=== PATIENT | female | born 1955 | race Caucasian/White ===

== ENCOUNTER → 2024-01-02 15:00 | Outpatient (REF) | payer MEDICARE, OTHER, SELFPAY | LOC: HWRAD 15:00 | PROVIDERS: ATTENDING PHYSICIAN Obstetrics & Gynecology Gynecology; FAMILY PHYSICIAN Family Medicine | DX: N85.9 Noninflammatory disorder of uterus, unspecified (principal) | CPT/HCPCS: 76830; 76856 ==

== ENCOUNTER → 2024-02-01 13:08 | Outpatient (REF) | payer MEDICARE, OTHER, SELFPAY | LOC: DHVS 13:08 | PROVIDERS: ATTENDING PHYSICIAN Surgery Vascular Surgery | DX: I65.23 Occlusion and stenosis of bilateral carotid arteries (principal) | CPT/HCPCS: 93880 ==

== ENCOUNTER → 2024-02-28 07:50 | Outpatient (REF) | payer MEDICARE, OTHER, SELFPAY | LOC: RAD 07:50 | PROVIDERS: ATTENDING PHYSICIAN Surgery Vascular Surgery; FAMILY PHYSICIAN Family Medicine | DX: I65.23 Occlusion and stenosis of bilateral carotid arteries (principal) | CPT/HCPCS: 70496; 70498; Q9967 ==

== ENCOUNTER 2024-05-27 06:19 | Inpatient (IN) | payer MEDICARE, OTHER, SELFPAY ==
[2024-05-23 09:32] VITALS: BMI 39.4
[2024-05-23 10:15] LABS: % Basophils 0.8 % (0-2); % Immature Granulocytes 0.2 % (0-0.5); % Lymphocytes 28.2 % (20.5-51.1); % Monocytes 7.7 % (1.7-9.3); % Neutrophils 61.1 % (42.2-75.2); Absolute Eosinophils 0.1 10^3/uL (0-0.7); Absolute Lymphocytes 1.4 10^3/uL (1.2-3.4); Absolute Monocytes 0.4 10^3/uL (0.1-0.6); Hematocrit 39.1 % (37.0-47.0); Hemoglobin 13.2 g/dL (12.0-16.0); Mean Corp Hgb Conc. 33.8 g/dL (33.0-37.0); Mean Corpuscular Hgb 30.1 pg (27.0-31.0); Mean Corpuscular Volume 89.1 fL (81.0-99.0); Mean Platelet Volume 8.7 fL (7.4-10.4); Nucleated Red Blood Cells % 0 %; Platelet Count 225 10^3/uL (130-400); Red Blood Cell Count 4.39 10^6/uL (4.20-5.40); Red Cell Dist. Width 13.2 % (11.5-14.5); White Blood Cell Count 4.9 10^3/uL (4.8-10.8)
[2024-05-23 10:25] LABS: Blood Urea Nitrogen 20 mg/dl (7-17); Calcium 9.7 mg/dl (8.4-10.2); Carbon Dioxide 23 mmol/L (22-30); Chloride 106 mmol/L (98-107); Estimated Creatinine Clearance 105 ml/min; Glucose 113 mg/dl (70-99); Potassium 4.4 mmol/L (3.5-5.1); Sodium 140 mmol/L (135-145); eGFR > 60.00
[2024-05-23 10:27] LABS: INR 0.99; PT 13.1 Sec (11.4-14.6)
[2024-05-23 10:28] LABS: APTT 23.4 Sec (23.4-35.0)
[2024-05-27] VITALS (12 sets, daily range): BP systolic 93–138; BP diastolic 42–92
[2024-05-27] MEDS: BACTROBAN NASAL 1 GRAM NASAL (06:57)
[2024-05-27] MEDS: NSS 500 IV (06:57)
[2024-05-27] MEDS: PERIDEX 0.12% ORAL RINSE 15 ML PO (06:57)
[2024-05-27] MEDS: VANCOCIN 300 MG IV (07:01)
[2024-05-27] MEDS: VANCOCIN 300 ML IV (07:01)
[2024-05-27 07:10] LABS: Glucose - Point of Care 98 mg/dl (70-99)
--- NOTE | 2024-05-27 07:40 | W.SUR.PREOP ---
Pre-Operative Surgical Note
-
I have examined this patient prior to the performance of the scheduled procedure.
The patient's condition is unchanged from the time of the current History and
Physical and the patient is able to undergo the scheduled procedure.
--- NOTE | 2024-05-27 09:44 | W.SUR.POST ---
Surgical Immediate Post Op
Note
Pre Op Diagnosis: Asymptomatic RIGHT carotid stenosis
Post Op Diagnosis: Asymptomatic RIGHT carotid stenosis
Procedure Performed: right carotid endarterectomy with bovine pericardium patch and EEG monitoring
Primary Surgeon: Song Anand MD
Phone Representative: Jacquelyn Lucas INFORMATION BROKER-C
Anesthesia: GETA
Estimated Blood Loss: 15 ml
Fluids: See anesthesia flow sheet
Drains/Shunts: N/A
Specimens/Cultures: Right carotid plaque
Doppler/Duplex/Angio (Y/N): Y
Complications: None
Operative Findings: Successful removal of carotid plaque upon awakening from anesthesia moved BL UE and LE to command and spontaneous
--- NOTE | 2024-05-27 09:46 | OR.RPT ---
Operative Report
Operative Report
PROCEDURE DATE: 05/27/2024
Preoperative diagnosis: Critical asymptomatic right carotid artery stenosis.
Postoperative diagnosis: Same
Procedure: Right carotid endarterectomy with bovine pericardial patch angioplasty and intraoperative EEG/SSEP monitoring.
Surgeon: Cheng
Respite Coordinator: MIGUEL ÁNGEL Lucas, required for all aspects of procedure including assistance with traction/countertraction, following of suture line, assistance with closure.
Complications: None
Anesthesia: General
Indications for procedure:
Critical right carotid stenosis. Asymptomatic. Risk/benefits/alternatives of revascularization all fully discussed. Patient understood all wish to proceed.
Description of procedure:
Patient was identified brought to the operating room placed on the table in supine position. After the adequate administration of anesthesia and perioperative antibiotics she was prepped and draped in the standard surgical fashion. A standard
preoperative timeout was undertaken and everybody was in agreement the plan. A standard longitudinal incision was made in the right neck that was carried through the skin subcutaneous tissue. Using the electrocautery dissection was carried through
the platysma muscle layer and then alongside the anterior medial border of the sternocleidomastoid muscle. Note that there was a crossing external jugular vein that was ligated between silk ties and then divided. Then using a combination of sharp
dissection with the Metzenbaum scissors and electrocautery I dissected along the anterior medial border of the internal jugular vein. The common facial vein branch was ligated between silk ties and then divided. I then deepened my retraction. The
common carotid artery was identified and carefully dissected away from the surrounding structures take great care to avoid any injury to the structures. A vessel loop was passed around it which was double looped, but not yet tightened. Note the
vagus nerve was visualized in its usual course posterior lateral to the carotid, and was protected from harm's way. I then continued my dissection up the common carotid artery to the bulb staying only on the anterior surface of the carotid artery.
Then I carried the dissection up to the internal carotid artery and then to the distal internal carotid artery. I identified where it was soft and carefully circumferentially dissected the internal carotid artery with minimal mobilization and
passed a vessel loop around it. Note the hypoglossal nerve was preserved from harm's way. The patient was given an appropriate dose of heparin 10,000 units. Next I dissected the anterior surface of the external carotid artery and superior thyroid
branches. These were then carefully circumferentially dissected with minimal mobilization and vessel loops passed around these which were double looped but not yet tightened. After 3 minutes of heparin circulation time and confirmation of
optimization of the blood pressure with my anesthesiology colleagues, I clamped the distal internal carotid artery where it was soft. There was no immediate EEG or SSEP changes. After 1 minute of test clamp time there was no changes noted.
Therefore at this point, the vessel loops on the external carotid artery and superior thyroid branches were tightened and the common carotid artery was clamped where it was soft proximally. An arteriotomy was made on the common carotid artery with
an 11 blade and extended using a Zapata scissor. Note, I noted backbleeding into the bed. I then identified an additional branch that emanated from the bifurcation/bulb running posteriorly in the crotch of the bifurcation. I carefully
circumferentially dissected this and passed a vessel loop around it which was double looped and then tightened. This controlled the backbleeding. I then extended the arteriotomy onto the mid to distal internal carotid artery. There was moderate
calcified plaque at the distal carotid bulb extending into the origin of the internal carotid artery. Somewhat coral reef like in nature on the central portion. Resulted in moderate to significant stenosis. A [place] was then used to
endarterectomized the plaque. An endarterectomy plane was created, and the plaque was then endarterectomized. Distally I feathered the plaque out to a nice clean endpoint in the distal internal carotid artery. Next I endarterectomized the intima
back to normal intima in the common carotid artery, and the intima was cut flush there. I then grasped the plaque and everted plaque out of the origin of the external carotid artery. The plaque was then sent off for specimen. The origin of the
external carotid artery was carefully visualized and any fine debris were removed with fine forceps. Proximal and distal endpoints were then carefully inspected. Any fine debris was removed with fine forceps, and the intima was noted to be nicely
adherent proximally distally. Next any fine debris were removed throughout the endarterectomy bed with fine forceps. I then flushed heparinized saline. I was very satisfied. Then, I used a bovine pericardial patch to sew a patch angioplasty with
a running 6-0 Prolene suture. Prior to completing and tying down my suture line, I backbled sequentially each branch and reclamped each branch prior to unclamping the next branch. I then irrigated with heparinized saline. Then I completed and
tied down my suture line. We then restored flow in the common carotid and external carotid arteries. Finally, we released flow in the internal carotid artery. There was excellent pulsatile flow in all 3 vessels. There was an excellent Doppler
signal in the internal carotid artery distal to the patch with a good normal low resistance Doppler signal. There was a good Doppler signal in the external carotid artery as well. A couple 6-0 Prolene [id number] sutures were placed along any
bleeding points along the suture line. Protamine was given to reverse the heparin. Hemostasis was completely achieved. We then irrigated and confirmed full hemostasis. I then closed in layers with 2-0 Vicryl layer to reapproximate the
sternocleidomastoid muscle, followed by 3-0 Vicryl platysma muscle running layer, followed by 4-0 Monocryl subcuticular stitch. Dermabond was applied. The patient tolerated procedure well. She awoke moving all extremities to command with tongue
in the midline.
[2024-05-27 09:54] LABS: Glucose - Point of Care 143 mg/dl (70-99)
[2024-05-27 10:01] LABS: Hematocrit 36.7 % (37.0-47.0); Hemoglobin 12.2 g/dL (12.0-16.0); Mean Corp Hgb Conc. 33.2 g/dL (33.0-37.0); Mean Corpuscular Hgb 30.2 pg (27.0-31.0); Mean Corpuscular Volume 90.8 fL (81.0-99.0); Mean Platelet Volume 8.7 fL (7.4-10.4); Platelet Count 188 10^3/uL (130-400); Red Blood Cell Count 4.04 10^6/uL (4.20-5.40); Red Cell Dist. Width 13.1 % (11.5-14.5); White Blood Cell Count 6.6 10^3/uL (4.8-10.8)
[2024-05-27] MEDS: SUBLIMAZE 50 MCG IV (10:13)
[2024-05-27 10:20] LABS: Blood Urea Nitrogen 15 mg/dl (7-17); Calcium 8.5 mg/dl (8.4-10.2); Carbon Dioxide 22 mmol/L (22-30); Chloride 106 mmol/L (98-107); Estimated Creatinine Clearance 105 ml/min; Glucose 162 mg/dl (70-99); Potassium 4.1 mmol/L (3.5-5.1); Sodium 139 mmol/L (135-145); eGFR > 60.00
[2024-05-27] MEDS: SUBLIMAZE 25 MCG IV ×2 (10:42→11:45)
[2024-05-27] MEDS: NSS 1000 IV ×2 (10:55→21:39)
--- NOTE | 2024-05-27 11:30 | PTCARENOTE ---
1113-Received pt from PACU via bed.
Pt is awake,alert.Speech is appropriate.No drift/droop.Tongue is midline.EOM intact.5/5 RAND.c/o slight numbness of right face and jaw.CHOIR TEACHER Lance made aware.c/o right neck and face pain.Medicated with Fentanyl.SB noted.IVF infusing.O2 4l NC.POX 96%Lungs
CTA.No BM.No void at this time.Right neck incision approximated with Dermabond.No drainage noted.Pt's family at bedside.Plan of care discussed.
--- NOTE | 2024-05-27 13:39 | CON.INTV ---
Consultation
Consultation Request
Date/Time Consultation Requested: 05/27/24
Date/Time Consultation Performed: 05/27/24
Performing Provider: Laurita
Reason for Consultation: Vasc Post OP
Medical History
-
History of Present Illness:
Patient is a 69-year-old female with previous history of hypertension, JERRY on CPAP, CAD, PFO, prior history of DVT, bilateral carotid disease with 80% stenosis of right internal carotid presenting for elective vascular intervention. Underwent right
CEA with Dr. Anand and transferred postoperatively to the ICU for further management.
.
Past Medical History
Past Medical History: Other (see list below)
Social History
Tobacco: Non-smoker
Alcohol: None
Drug: None
Family History
Family History: Reviewed & Not Pertinent
Allergies / Home Medications
Allergies
Allergy/AdvReac Type Severity Reaction Status Date / Time
amoxicillin [Amoxicillin] Allergy Hives Verified 05/27/24 06:59
atorvastatin Allergy Hives Verified 05/27/24 06:59
atorvastatin calcium Allergy Hives Verified 05/27/24 06:59
[From Lipitor]
atropine Allergy Anaphylaxis Verified 05/27/24 06:59
Cephalosporins Allergy Hives Verified 05/27/24 06:59
Iodinated Contrast Media Allergy Anaphylaxis Verified 05/27/24 06:59
iodine Allergy HIVES AND Verified 05/27/24 06:59
CLOSING OF
THROAT
morphine Allergy DIFFICULTY Verified 05/27/24 06:59
BREATHING
AND
SWELLING
OF THROAT
penicillin G Allergy Hives Verified 05/27/24 06:59
Penicillins Allergy Hives Verified 05/27/24 06:59
Home Medications
�Medication �Instructions �Recorded �Confirmed �Last Taken �Type
aspirin 81 mg chewable tablet 81 mg PO DAILY Blood Clot 01/09/12 05/27/24 05/26/24 20:00 History
Prevention/Tx
Lactobacillus acidophilus 10 1 ea PO DAILY Supplement 03/21/13 05/27/24 05/26/24 08:00 History
billion cell capsule (Probiotic)
ibuprofen 600 mg tablet 1 tab PO DAILY Pain 03/21/13 05/27/24 05/26/24 08:00 History
irbesartan 300 mg tablet (Avapro) 300 mg PO HS Blood Pressure 03/21/13 05/27/24 05/26/24 20:00 History
ascorbic acid (vitamin C) 500 mg 500 mg PO DAILY Supplement 05/20/24 05/27/24 05/26/24 08:00 History
tablet (Vitamin C)
atenolol 25 mg tablet 25 mg PO DAILY Blood Pressure 05/20/24 05/27/24 05/26/24 20:00 History
cholecalciferol (vitamin D3) 50 25 mcg PO DAILY Supplement 05/20/24 05/27/24 05/26/24 08:00 History
mcg (2,000 unit) capsule (Vitamin
D3)
cranberry extract 250 mg capsule 250 mg PO DAILY Supplement 05/20/24 05/27/24 05/26/24 20:00 History
evolocumab 140 mg/mL subcutaneous 140 mg SC Q2W High Cholesterol 05/20/24 05/27/24 05/20/24 History
syringe (Repatha Syringe)
ezetimibe 10 mg tablet (Zetia) 10 mg PO HS High Cholesterol 05/20/24 05/27/24 05/26/24 20:00 History
metformin 500 mg tablet 1,000 mg PO HS Diabetes 05/20/24 05/27/24 05/26/24 20:00 History
omega 1-oaw-vpq-fish oil 1,200 mg 2 cap PO BID Supplement 05/20/24 05/27/24 05/26/24 08:00 History
(144 mg-216 mg) capsule (Fish Oil)
pyridoxine (vitamin B6) 200 mg 200 mg PO DAILY Supplement 05/20/24 05/27/24 05/26/24 08:00 History
tablet,extended release
rosuvastatin 40 mg tablet 40 mg PO HS High Cholesterol 05/20/24 05/27/24 05/26/24 20:00 History
sertraline 200 mg capsule 200 mg PO HS Mental Health/Anxiety 05/20/24 05/27/24 05/26/24 20:00 History
vitamin B complex 1 cap PO DAILY Supplement 05/20/24 05/27/24 05/26/24 08:00 History
magnesium 200 mg tablet 600 mg PO HS Electrolyte Repletion 05/27/24 05/27/24 05/26/24 20:00 History
Review of Systems
-
History Source: Patient
All other systems: Negative unless noted
Vitals / Labs / Diagnostic Testing
Vital Signs
Temp Pulse Resp BP Pulse Ox
97.4 F 53 13 121/51 93
05/27/24 10:59 05/27/24 12:01 05/27/24 12:01 05/27/24 10:58 05/27/24 11:00
Lab Data
05/27/24 09:54
05/27/24 09:54
Diagnostic Testing:
Physical Exam
-
HEENT: Normocephalic, Anicteric and Moist Mucous Membranes
Cardiovascular: S1/S2 and Regular Rhythm
Respiratory: Clear and Non-Labored Respirations
GI: Soft, Non Distended and Non Tender
Neurology: Awake, Alert, Oriented and No Motor Deficits
Skin: Warm, Dry and Good Color
General: Comfortable and Other (NAD)
Assessment
-
Patient is a 69-year-old female with previous history of hypertension, JERRY on CPAP, CAD, PFO, prior history of DVT, bilateral carotid disease with 80% stenosis of right internal carotid presenting for elective vascular intervention. Underwent right
CEA with Dr. Anand and transferred postoperatively to the ICU for further management.
Carotid disease s/p R CEA 05/27/24
Hyperglycemia
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
Hypertension
Hyperlipidemia
Nonobstructive CAD - Dr. Lama
Carotid atherosclerosis, bilateral
PFO
Prediabetes
Obesity - BMI = 39
JERRY, severe, AHI 47.3 on sleep study 2016, +CPAP - Dr. Moya
Osteoarthritis
Lumbar stenosis, epidural injections - 2014, Dr. Beasley
Melanoma s/p excision (left chest) 2011
Adenomatous colon polyps, last colonoscopy 12/16/16, repeat 5 yrs - Dr. Vargas
History of chronic UTI - stones - Interstitial cystitis - [facility]
Anxiety
Left thyroid nodule, last US 03/22/16 stable compared to 2010
History of DVT after knee replacement, +coumadin - 2000
Post-concussive syndrome - 2011
Sciatica
Sigmoid colon resection - recurrent diverticulitis - [facility] - 2012
Femoral condyle severed - left - pins placed - 1969
Meniscus reconstruction, left - 1973
Total knee replacement - left - 2000 / Knee reconstruction - left - 2001 / Knee revision - left - [facility] - S - 07/2021
section
Appendectomy - 1982
Cyst on right thumb - Thumb surgery/Trigger release
UPJ obstruction c/b hydronephrosis - right - [facility] - 1998
Plan
Patient is s/p R CEA by vascular surgery service, POD #0
Continue observation following procedure
Follow neurovascular checks per protocol
ASA, betablocker and statin on board
Follow BP monitoring and parameters as set by primary team
Cardiac history noted--CAD, HTN
Resume home meds when able
Monitor on telemetry
Pain control per protocol
RASS goal 0
Prior history of pulmonary disease, JERRY on CPAP
Resume postop when able
CXR reviewed indicating no acute disease
No prior PFTs for review
Encouraged IS
Diet advancement per protocol
Aspiration precautions
GI prophylaxis if indicated for stress ulcer prevention in the critically ill
Creat at baseline, follow UO
Critical I/Os
Void trials
Replete electrolytes as needed
No signs/symptoms suspicious for infectious etiology at this time
Will observe off antibiotics for now
Follow temperatures/CBC
Hb and platelets postoperatively stable
DVT prophylaxis recommended if not contraindicated based on procedural history -- heparin SQ and mechanical SCDs
Encouraged OOB/PT/OT/ambulation once cleared by surgical team
We will follow
Diagnostic Data
Chest X-Ray: 05/23/24- No active cardiopulmonary disease.
CT Scan: CTA 11/15/18- No CT evidence of pulmonary embolism. Mild cardiomegaly. Hepatic cyst versus hemangioma.
Echo: 04/07/15 - Normal left ventricular size, wall thickness and systolic function. Normal regional wall motion. 2 circular echo-free areas in the liver likely consistent with liver cysts. Left ventricular ejection fraction is 60%. Trace tricuspid
regurgitation. Estimated pulmonary artery pressure of 25-30 mmHg. No prior study available for comparison.
PFT's:
Reports and relevant images were personally reviewed.
-----
Critical care time 55 mins -- this includes review of history, physical exam, medications, hemodynamic/ventilator parameters, laboratory data, imaging and discussion with house staff, pharmacy, respiratory therapy, lead level designer, and nursing.
[2024-05-27 13:53] LABS: Glucose - Point of Care 104 mg/dl (70-99)
[2024-05-27] MEDS: TYLENOL 650 MG PO ×2 (14:38→19:03)
--- NOTE | 2024-05-27 14:44 | PTCARENOTE ---
Pt voided large amount yellow urine on bedpan.c/o mild neck pain.Requested and received Tylenol.
--- NOTE | 2024-05-27 16:00 | PTCARENOTE ---
Pt assessed.No change in assessment noted.
[2024-05-27 17:18] LABS: Glucose - Point of Care 142 mg/dl (70-99)
[2024-05-27 21:22] LABS: Glucose - Point of Care 130 mg/dl (70-99)
[2024-05-27] MEDS: HEPARIN 5000 UNITS SC (21:31)
[2024-05-27] MEDS: MAG-TAB SR 84 MG PO (21:32)
[2024-05-27] MEDS: AVAPRO 300 MG PO (21:32)
[2024-05-27] MEDS: CRESTOR 40 MG PO (21:33)
[2024-05-27] MEDS: ZOLOFT 200 MG PO (21:33)
[2024-05-27] MEDS: ZETIA 10 MG PO (21:33)
--- NOTE | 2024-05-27 22:29 | PTCARENOTE ---
Pt S/P right CEA, GCS 15, RAND 5/5, c/o intermittent headache relieved by tylenol. Ice pack applied to neck q2h for 20 min as ordered. Surgical adhesive intact, edges approximated, no swelling. Afebrile. SB on monitor. BP control as ordered. Not
currently requiring drips. IV line flushed/patent. Pulses palpable. 4L nasal cannula, lungs clear, 96%. Tolerating diabetic diet. Voids on bedpan. Will monitor.
--- NOTE | 2024-05-28 01:00 | PTCARENOTE ---
Pt reassessed, no change in previous assessment. Will continue to monitor.
[2024-05-28] MEDS: TYLENOL 650 MG PO ×3 (03:33→12:43)
[2024-05-28 03:36] LABS: Hemoglobin 11.2 g/dL (12.0-16.0); Mean Corp Hgb Conc. 32.9 g/dL (33.0-37.0); Mean Corpuscular Hgb 29.9 pg (27.0-31.0); Mean Corpuscular Volume 90.9 fL (81.0-99.0); Mean Platelet Volume 8.5 fL (7.4-10.4); Platelet Count 182 10^3/uL (130-400); Red Blood Cell Count 3.74 10^6/uL (4.20-5.40); Red Cell Dist. Width 13.3 % (11.5-14.5); White Blood Cell Count 7.8 10^3/uL (4.8-10.8)
[2024-05-28 03:47] LABS: INR 1.09; PT 13.9 Sec (11.4-14.6)
[2024-05-28 04:19] LABS: Blood Urea Nitrogen 20 mg/dl (7-17); Calcium 8.5 mg/dl (8.4-10.2); Carbon Dioxide 22 mmol/L (22-30); Chloride 108 mmol/L (98-107); Estimated Creatinine Clearance 105 ml/min; Glucose 108 mg/dl (70-99); Potassium 4.5 mmol/L (3.5-5.1); Sodium 141 mmol/L (135-145); eGFR > 60.00
--- NOTE | 2024-05-28 07:14 | W.PN.INTV ---
Today's Communication / Plan
Recommendations
No acute events, stable on RA
No new complaints
Tolerating diet well, OOB to chair
Further postop care per team
Discharge planning hopefully today
Assessment
-
Patient is a 69-year-old female with previous history of hypertension, JERRY on CPAP, CAD, PFO, prior history of DVT, bilateral carotid disease with 80% stenosis of right internal carotid presenting for elective vascular intervention. Underwent right
CEA with Dr. Anand and transferred postoperatively to the ICU for further management.
Carotid disease s/p R CEA 05/27/24
Hyperglycemia
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
Hypertension
Hyperlipidemia
Nonobstructive CAD - Dr. Lama
Carotid atherosclerosis, bilateral
PFO
Prediabetes
Obesity - BMI = 39
JERRY, severe, AHI 47.3 on sleep study 2015, +CPAP - Dr. Moya
Osteoarthritis
Lumbar stenosis, epidural injections - 2014, Dr. Beasley
Melanoma s/p excision (left chest) 2011
Adenomatous colon polyps, last colonoscopy 12/16/16, repeat 5 yrs - Dr. Vargas
History of chronic UTI - stones - Interstitial cystitis - [facility]
Anxiety
Left thyroid nodule, last US 03/22/16 stable compared to 2010
History of DVT after knee replacement, +coumadin - 2000
Post-concussive syndrome - 2011
Sciatica
Sigmoid colon resection - recurrent diverticulitis - Kirill - 2012
Femoral condyle severed - left - pins placed - 1969
Meniscus reconstruction, left - 1973
Total knee replacement - left - 2000 / Knee reconstruction - left - 2001 / Knee revision - left - [facility] - 07/2021
section
Appendectomy - 1982
Cyst on right thumb - Thumb surgery/Trigger release
UPJ obstruction c/b hydronephrosis - right - Alaniz - 1998
Plan
Patient is s/p R CEA by vascular surgery service, POD #1
Continue observation following procedure
Follow neurovascular checks per protocol
ASA, betablocker and statin on board
Follow BP monitoring and parameters as set by primary team
Cardiac history noted--CAD, HTN
Resume home meds when able
Monitor on telemetry
Pain control per protocol
RASS goal 0
Prior history of pulmonary disease, JERRY on CPAP
Resume postop when able
CXR reviewed indicating no acute disease
No prior PFTs for review
Encouraged IS
Diet advancement per protocol
Aspiration precautions
GI prophylaxis if indicated for stress ulcer prevention in the critically ill
Creat at baseline, follow UO
Critical I/Os
Void trials
Replete electrolytes as needed
No signs/symptoms suspicious for infectious etiology at this time
Will observe off antibiotics for now
Follow temperatures/CBC
Hb and platelets postoperatively stable
DVT prophylaxis recommended if not contraindicated based on procedural history -- heparin SQ and mechanical SCDs
Encouraged OOB/PT/OT/ambulation once cleared by surgical team
Discharge planning per team
Diagnostic Data
Chest X-Ray: 05/23/24- No active cardiopulmonary disease.
CT Scan: CTA 11/15/18- No CT evidence of pulmonary embolism. Mild cardiomegaly. Hepatic cyst versus hemangioma.
Echo: 04/07/15 - Normal left ventricular size, wall thickness and systolic function. Normal regional wall motion. 2 circular echo-free areas in the liver likely consistent with liver cysts. Left ventricular ejection fraction is 60%. Trace tricuspid
regurgitation. Estimated pulmonary artery pressure of 25-30 mmHg. No prior study available for comparison.
PFT's:
Reports and relevant images were personally reviewed.
-----
Critical care time 31 mins -- this includes review of history, physical exam, medications, hemodynamic/ventilator parameters, laboratory data, imaging and discussion with house staff, pharmacy, respiratory therapy, director of casework department, and nursing.
Subjective Dataa
Subjective Data
Date of Service:
Date of Service: May 28, 2024
Chief Complaint: Rn Child Follow Up
Subjective:
No acute events ON, stable on RA
No new complaints
Objective Data
Data Reviewed
Vital Signs / I&O / Oxygen:
Vital Signs
Temp Pulse Resp BP Pulse Ox
98.0 F 64 20 125/47 95
05/28/24 03:27 05/28/24 06:30 05/28/24 06:30 05/27/24 21:32 05/28/24 06:30
Intake and Output
05/27/24 05/28/24 05/29/24
06:59 06:59 06:59
Intake Total 2690 / 2690
Output Total 1000 / 1000
Balance 1690 / 1690
SaO2 95
Nasal Cannula flow liters per 4
minute
Labs/Micro/Reports
Lab Data
05/28/24 03:18
05/28/24 03:18
Laboratory Results
05/28/24
03:18
PT 13.9
INR 1.09
APTT 26.0
[2024-05-28 07:31] LABS: Glucose - Point of Care 103 mg/dl (70-99)
[2024-05-28 08:00] VITALS: BP 114/47
--- NOTE | 2024-05-28 08:00 | PTCARENOTE ---
pt is awake and alert, NSR on monitor , BP 114/47 on 2l NC sats 98% weaning down 02 , pt has minimal pain in R neck , tolerating diet , plan to get oob later ,
[2024-05-28 08:07] VITALS: BP 114/47
[2024-05-28] MEDS: B COMPLEX w/VITAMIN C 1 CAPLET PO (08:31)
[2024-05-28] MEDS: VITAMIN B-6 200 MG PO (08:31)
[2024-05-28] MEDS: HEPARIN 5000 UNITS SC (08:32)
[2024-05-28] MEDS: VISBIOME 1 CAP PO (08:32)
[2024-05-28] MEDS: VITAMIN D3 (cholecalciferol) 25 MCG PO (08:32)
[2024-05-28] MEDS: VITAMIN C 500 MG PO (08:32)
[2024-05-28] MEDS: LOW STRENGTH ASPIRIN 81 MG PO (08:32)
[2024-05-28 08:41] LABS: Glucose - Point of Care 106 mg/dl (70-99)
[2024-05-28 09:42] VITALS: BP 130/49
[2024-05-28 09:59] VITALS: BP 65/55
[2024-05-28 10:01] VITALS: BP 106/42
--- NOTE | 2024-05-28 10:09 | W.PN.VS ---
Today's Communication / Plan
-
D/w Dr Gill
Assessment/Plan
-
POD 1 R CEA
Plan:
-DC andrew
-OBB/ambulate
-Diet
-PO meds
-likely DC later today
Subjective Data
-
Date of Service: May 28, 2024
Pt seen at bedside this am. Pt offers no complaints at this time. No gtts infusing. No events overnight.
Objective Data
-
Vital Signs
Temp Pulse Resp BP Pulse Ox
97.7 F 64 20 125/47 95
05/28/24 07:38 05/28/24 06:30 05/28/24 06:30 05/27/24 21:32 05/28/24 06:30
Intake and Output
05/27/24 05/28/24 05/29/24
06:59 06:59 06:59
Intake Total 2690 / 2690
Output Total 1000 / 1000
Balance 1690 / 1690
Intake:
Oral fluids 600 / 600
IV fluids (Total) 1840 / 1840
NSS 40 / 40
Normosol 200 / 200
Nss 1,000 ml @ 80 mls/hr IV . 1600 / 1600
[id number] [facility] Rx#:[id number]
IV piggybacks 250 / 250
Output:
Urine, Voided 1000 / 1000
Other:
Number of approximated LARGE 1
amounts of urine
Lab Results
05/28/24 03:18
05/28/24 03:18
Calcium 8.5 mg/dl (8.4-10.2) 05/28/24 03:18
Magnesium 2.0 mg/dl (1.6-2.3) 05/28/24 03:18
Physical Exam
-
AAOx3
No tachypnea
No tachycardia
Neck site c/d/i, no swelling, soft
Moves all extremities equally, tongue midline.
[2024-05-28 12:00] VITALS: BP 130/41
[2024-05-28 12:07] LABS: Glucose - Point of Care 96 mg/dl (70-99)
[2024-05-28] MEDS: NSS IV (12:40)
--- NOTE | 2024-05-28 13:47 | W.DS.TRANS ---
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
-
Discharge Instructions:
Discharge Diagnosis/Procedures Carotid endarterectomy
Diet As tolerated
Activity No strenuous activity
Driving Restrictions Not until seen by your Dr
Bathing Restrictions OK to Shower
Instructions:
Stand-Alone Forms: DC Instr - Vascular OR
Changes to Home Medications: No
Discharge Medications:
DC Medications w/original date entered in [employer]
aspirin 81 mg chewable tablet 81 mg PO DAILY Blood Clot Prevention/Tx 01/09/12
Lactobacillus acidophilus 10 billion cell capsule (Probiotic) 1 ea PO DAILY Supplement 03/21/13
ibuprofen 600 mg tablet 1 tab PO DAILY Pain 03/21/13
irbesartan 300 mg tablet (Avapro) 300 mg PO HS Blood Pressure 03/21/13
ascorbic acid (vitamin C) 500 mg tablet (Vitamin C) 500 mg PO DAILY Supplement 05/20/24
atenolol 25 mg tablet 25 mg PO DAILY Blood Pressure 05/20/24
cholecalciferol (vitamin D3) 50 mcg (2,000 unit) capsule (Vitamin D3) 25 mcg PO DAILY Supplement 05/20/24
cranberry extract 250 mg capsule 250 mg PO DAILY Supplement 05/20/24
evolocumab 140 mg/mL subcutaneous syringe (Repatha Syringe) 140 mg SC Q2W High Cholesterol 05/20/24
ezetimibe 10 mg tablet (Zetia) 10 mg PO HS High Cholesterol 05/20/24
metformin 500 mg tablet 1,000 mg PO HS Diabetes 05/20/24
omega 0-jna-nzc-fish oil 1,200 mg (144 mg-216 mg) capsule (Fish Oil) 2 cap PO BID Supplement 05/20/24
pyridoxine (vitamin B6) 200 mg tablet,extended release 200 mg PO DAILY Supplement 05/20/24
rosuvastatin 40 mg tablet 40 mg PO HS High Cholesterol 05/20/24
sertraline 200 mg capsule 200 mg PO HS Mental Health/Anxiety 05/20/24
vitamin B complex 1 cap PO DAILY Supplement 05/20/24
magnesium 200 mg tablet 600 mg PO HS Electrolyte Repletion 05/27/24
Home Medication Changes
Pending Results: No
--- NOTE | 2024-05-28 14:12 | PTCARENOTE ---
pt written for DC to home , IV s removed , pt and given DC instructions and both verbalized understanding
--- NOTE | 2024-05-28 15:36 | CM ---
manager regional reviewed patient's chart and patient was admitted for a procedure, prior to admission patient lives with spouse is independent with adl's and ambulation, no dme, patient has been cleared for discharge today, spouse at bedside ready to
take patient home.
Pharmacy: [facility]
PCP: Dr. Gonzalez
Plan; Home no needs.
== END 2024-05-28 15:01 | disposition home or self-care (01) | DRG 39 ==
LOC: ICU 06:19
PROVIDERS: Nurse Practitioner; ADMITTING PHYSICIAN Surgery Vascular Surgery; CONSULT PHYSICIAN Internal Medicine; FAMILY PHYSICIAN Family Medicine
PROC: 03UK0KZ Supplement Right Internal Carotid Artery with Nonautologous Tissue Substitute, Open Approach (ICD-10-PCS; 2024-05-27)
PROC: 03CK0ZZ Extirpation of Matter from Right Internal Carotid Artery, Open Approach (ICD-10-PCS; 2024-05-27)
DX: I65.21 Occlusion and stenosis of right carotid artery (principal); I10 Essential (primary) hypertension; G47.33 Obstructive sleep apnea (adult) (pediatric); I25.10 Atherosclerotic heart disease of native coronary artery without angina pectoris; E11.65 Type 2 diabetes mellitus with hyperglycemia; E78.00 Pure hypercholesterolemia, unspecified; E66.9 Obesity, unspecified; Z68.39 Body mass index [BMI] 39.0-39.9, adult; Z86.718 Personal history of other venous thrombosis and embolism
CPT/HCPCS: 88304; 88311; 35301; 36415; 71046; 80048; 82962; 83735; 85025; 85027; 85610; 85730; 86850; 86900; 86901; 95938; 95941; 95955

== ENCOUNTER → 2024-07-05 08:29 | Outpatient (REF) | payer MEDICARE, OTHER, SELFPAY | LOC: RAD 08:29 | PROVIDERS: ATTENDING PHYSICIAN Registered Nurse; FAMILY PHYSICIAN Family Medicine | DX: I65.23 Occlusion and stenosis of bilateral carotid arteries (principal) | CPT/HCPCS: 93880 ==

== ENCOUNTER → 2025-01-13 10:46 | Outpatient (REF) | payer MEDICARE, OTHER, SELFPAY | LOC: RAD 10:46 | PROVIDERS: ATTENDING PHYSICIAN Surgery Vascular Surgery; FAMILY PHYSICIAN Family Medicine | DX: I65.23 Occlusion and stenosis of bilateral carotid arteries (principal); M25.512 Pain in left shoulder; M54.2 Cervicalgia; M47.816 Spondylosis without myelopathy or radiculopathy, lumbar region; M54.16 Radiculopathy, lumbar region; M48.061 Spinal stenosis, lumbar region without neurogenic claudication; M51.26 Other intervertebral disc displacement, lumbar region | CPT/HCPCS: 72040; 73030; 93880 ==

== ENCOUNTER → 2025-01-15 07:17 | Outpatient (REF) | payer MEDICARE, OTHER, SELFPAY | LOC: MRI 07:17 | PROVIDERS: ATTENDING PHYSICIAN Family Medicine | DX: M48.061 Spinal stenosis, lumbar region without neurogenic claudication (principal); M47.816 Spondylosis without myelopathy or radiculopathy, lumbar region | CPT/HCPCS: 72148 ==

== ENCOUNTER → 2025-01-23 15:19 | Outpatient (REF) | payer MEDICARE, OTHER, SELFPAY | LOC: WDC 15:19 | PROVIDERS: ATTENDING PHYSICIAN Family Medicine | DX: Z12.31 Encounter for screening mammogram for malignant neoplasm of breast (principal) | CPT/HCPCS: 77063; 77067 ==

== ENCOUNTER → 2025-05-04 07:39 | Outpatient (REF) | payer MEDICARE, OTHER, SELFPAY | LOC: MRI 3T 07:39 | PROVIDERS: ATTENDING PHYSICIAN Physical Medicine & Rehabilitation; FAMILY PHYSICIAN Family Medicine | DX: M54.12 Radiculopathy, cervical region (principal); M25.512 Pain in left shoulder | CPT/HCPCS: 72141; 73221 ==

== ENCOUNTER → 2025-05-26 12:49 | Outpatient (REF) | payer MEDICARE, OTHER, SELFPAY | LOC: RAD 12:49 | PROVIDERS: ATTENDING PHYSICIAN Family Medicine; OTHER PHYSICIAN Specialist | DX: R22.1 Localized swelling, mass and lump, neck (principal); M19.012 Primary osteoarthritis, left shoulder | CPT/HCPCS: 70491; 73200; Q9967 ==

== ENCOUNTER → 2025-06-13 08:37 | Outpatient (REF) | payer MEDICARE, OTHER, SELFPAY ==
[2025-06-13 08:55] VITALS: BP 126/54; BP_SYST 72
== END ==
LOC: RADI 08:37
PROVIDERS: ATTENDING PHYSICIAN Student in an Organized Health Care Education/Training Program
DX: K11.8 Other diseases of salivary glands (principal); Z53.8 Procedure and treatment not carried out for other reasons
CPT/HCPCS: 76536

== ENCOUNTER → 2025-06-30 06:28 | Outpatient (REF) | payer MEDICARE, OTHER, SELFPAY | LOC: RAD 06:28 | PROVIDERS: ATTENDING PHYSICIAN Registered Nurse; FAMILY PHYSICIAN Family Medicine | DX: I65.23 Occlusion and stenosis of bilateral carotid arteries (principal) | CPT/HCPCS: 93880 ==

== ENCOUNTER → 2025-07-03 10:34 | Outpatient (REF) | payer MEDICARE, OTHER, SELFPAY | LOC: RAD 10:34 | PROVIDERS: ATTENDING PHYSICIAN Surgery Vascular Surgery; FAMILY PHYSICIAN Family Medicine | DX: I77.1 Stricture of artery (principal) | CPT/HCPCS: 93923; 93930 ==

== ENCOUNTER → 2025-08-04 06:58 | Outpatient (REF) | payer MEDICARE, OTHER, SELFPAY ==
[2025-08-04] VITALS (9 sets, daily range): BP systolic 51–105; BP diastolic 40–54
[2025-08-04 07:33] LABS: INR 1.04; PT 13.7 Sec (11.4-14.6)
== END ==
LOC: RADI 06:58
PROVIDERS: ATTENDING PHYSICIAN Student in an Organized Health Care Education/Training Program; FAMILY PHYSICIAN Family Medicine; REFERRING PHYSICIAN Physician Assistant
DX: D11.0 Benign neoplasm of parotid gland (principal)
CPT/HCPCS: 36415; 42400; 77012; 85610; 88173; 88305; 99152; 99153